=== PATIENT | female | born 1995 | race African-American/Black ===

== ENCOUNTER 2018-01-17 12:53 | Emergency (ER) | payer MEDICAID, OTHER | END 2018-01-17 14:50 | disposition home or self-care (01) | LOC: E/R 12:53 | DX: S69.92XA Unspecified injury of left wrist, hand and finger(s), initial encounter (principal); W21.03XA Struck by baseball, initial encounter; Y92.320 Baseball field as the place of occurrence of the external cause | CPT/HCPCS: 29125; 73110-LT; 73140; 99283-25 ==